=== PATIENT | female | born 1995 | race Caucasian/White ===

== ENCOUNTER 2022-11-18 14:06 | Inpatient (IN) | payer BC ==
[2022-11-19 01:09] VITALS: BMI 35.9
[2022-11-19] MEDS ORDERED: Methylergonovine 0.2 MG/ML VIAL IM PRN (01:55)
[2022-11-19] MEDS ORDERED: Zolpidem Tartrate 5 MG TAB PO PRN (01:55)
[2022-11-19] MEDS ORDERED: Carboprost 250 MCG/ML AMP IM PRN (01:55)
[2022-11-19] MEDS ORDERED: Lidocaine 1% (PF) 30 ML VIAL SC PRN (01:55)
[2022-11-19] MEDS ORDERED: Misoprostol 200 MCG TAB PR PRN (01:55)
[2022-11-19] MEDS ORDERED: Ondansetron PF 4 MG/2 ML Vial IVP PRN ×2 (01:55→20:25)
[2022-11-19] MEDS ORDERED: Acetaminophen 500 MG TAB PO PRN (01:55)
[2022-11-19] MEDS ORDERED: fentaNYL 50 mcg/mL 1 mL Vial SLOW IVP PRN (01:55)
[2022-11-19] MEDS ORDERED: Promethazine HCl 25 MG/ML VIAL IM PRN ×2 (01:55→20:25)
[2022-11-19] MEDS ORDERED: Tranexamic Acid 1,000 MG/10 ML VIAL IVP PRN (01:55)
[2022-11-19] MEDS ORDERED: hydrALAZINE 20 MG/ML VIAL SLOW IVP PRN (01:55)
[2022-11-19] MEDS ORDERED: Penicillin G Potassium 5 MILL.UNITS in Sodium Chloride 0.9% 100 ML IVPB SCH (01:55)
[2022-11-19] MEDS ORDERED: Diphenoxylate HCl/Atropine Tablet PO PRN ×2 (01:55)
[2022-11-19] MEDS ORDERED: HYDROcodone/Acetaminophen 5/325 mg Tablet PO PRN ×2 (01:55)
[2022-11-19] MEDS ORDERED: Ibuprofen 800 MG TAB PO PRN (01:55)
[2022-11-19] MEDS ORDERED: NS w/ Oxytocin 30 units 500 ML IV SCH ×2 (01:55)
[2022-11-19] MEDS: Misoprostol 100 MCG TAB VAG SCH ×3 (03:22→09:56)
[2022-11-19] MEDS: Lactated Ringer's 1,000 ML IV SCH ×3 (03:22→22:12)
[2022-11-19 04:01] LABS: Syphilis Antibody Nonreactive (Nonreactive); Syphilis Antibody Index 0.05 S/CO (<1.00 Non-Reactive)
[2022-11-19 04:02] LABS: HBSAg Index 0.18 S/CO (0-0.99); Hep B Surf Ag - L&D Non-Reactive S/CO (NonReactive)
[2022-11-19 04:20] LABS: Hematocrit 33.1 % (34.9-44.5); Hemoglobin 10.7 g/dL (12.0-15.5); Mean Corpuscular HGB CONC 32.3 g/dL (32.0-36.0); Mean Corpuscular Hemoglobin 31.8 pg (27.0-33.0); Mean Corpuscular Volume 98.5 fl (81.6-98.3); Mean Platelet Volume 10.8 fl (7.4-10.4); Platelet Count 186 10x3/uL (150-450); RBC Distribution Width 14.6 % (11.5-14.5); Red Blood Cell (RBC) Count 3.36 10x6/uL (3.90-5.03); White Blood Cell (WBC) Count 9.4 10x3/uL (3.5-10.5)
[2022-11-19] MEDS: Penicillin G 2.5 MILL.units 2.5 MILL.UNITS in Premix Bag 1 BAG IVPB SCH ×3 (13:46→21:06)
[2022-11-19] MEDS ORDERED: fentaNYL/Ropivacaine Epidural 100 ML ONE (19:35)
[2022-11-19] MEDS ORDERED: Moisturizing Cream (Eucerin) 113 GM JAR TOP PRN (20:25)
[2022-11-19] MEDS ORDERED: Lactated Ringer's 500 ML IV PRN (20:25)
[2022-11-19] MEDS ORDERED: diphenhydrAMINE 50 MG/ML VIAL IVP PRN (20:25)
[2022-11-19] MEDS ORDERED: Naloxone HCl 0.4 mg/ml Vial IVP PRN ×2 (20:25)
[2022-11-19] MEDS ORDERED: ePHEDrine Sulfate 50 MG/10 ML VIAL SLOW IVP PRN (20:25)
[2022-11-19] MEDS ORDERED: Acetaminophen 325 MG TAB PO PRN (20:25)
[2022-11-19] MEDS ORDERED: Communication Order-Pharmacy FS SCH (20:30)
[2022-11-19] MEDS ORDERED: fentaNYL 2 mcg/Ropivacaine 0.2% Epidural 100 ML CADD EPIDURAL SCH (20:30)
[2022-11-20] MEDS: Penicillin G 2.5 MILL.units 2.5 MILL.UNITS in Premix Bag 1 BAG IVPB SCH ×2 (01:43→19:33)
[2022-11-20] MEDS ORDERED: Azithromycin 500 MG VIAL ONE (06:45)
[2022-11-20] MEDS ORDERED: CEFAZOLIN 2 GM VIAL ONE (06:45)
[2022-11-20] MEDS ORDERED: Famotidine/PF 20 mg/2ml Vial ONE (06:50)
[2022-11-20] MEDS ORDERED: Ondansetron PF 4 MG/2 ML Vial ONE ×2 (06:57→07:29)
[2022-11-20] MEDS ORDERED: ePHEDrine Sulfate 50 MG/10 ML VIAL ONE (06:57)
[2022-11-20] MEDS ORDERED: Oxytocin 10 UNITS/ML VIAL ONE (06:57)
[2022-11-20] MEDS ORDERED: PHENYLEPHRINE-NS 100 MCG/ML 10 ML SYRINGE ONE (06:57)
[2022-11-20] MEDS ORDERED: Morphine PF 10 MG/10 ML VIAL ONE (06:57)
[2022-11-20] MEDS ORDERED: Ketorolac Tromethamine 30 MG/ML VIAL ONE (06:58)
[2022-11-20] MEDS ORDERED: Chloroprocaine 3% PF 20 ML VIAL ONE (06:58)
[2022-11-20] MEDS ORDERED: Bicitra 30 ML UDCUP PO PRN (07:01)
[2022-11-20] MEDS ORDERED: Famotidine/PF 20 mg/2ml Vial SLOW IVP PRN (07:01)
[2022-11-20] MEDS ORDERED: Azithromycin 500 MG in Sodium Chloride 0.9% 250 ML 250 ML IVPB STA (07:02)
[2022-11-20] MEDS ORDERED: CEFAZOLIN 2 GM in Sodium Chloride 0.9% 100 ML IVPB SCH (07:15)
[2022-11-20] MEDS ORDERED: Naloxone HCl 0.4 mg/ml Vial IVP PRN ×2 (09:15)
[2022-11-20] MEDS ORDERED: Ondansetron PF 4 MG/2 ML Vial IVP PRN (09:15)
[2022-11-20] MEDS ORDERED: Communication Order-Pharmacy FS SCH (09:15)
[2022-11-20] MEDS ORDERED: Promethazine HCl 25 MG/ML VIAL IM PRN (09:15)
[2022-11-20] MEDS ORDERED: Moisturizing Cream (Eucerin) 113 GM JAR TOP PRN (09:15)
[2022-11-20] MEDS ORDERED: Ketorolac Tromethamine 30 MG/ML VIAL IVP SCH (09:15)
[2022-11-20] MEDS ORDERED: Ondansetron HCl/PF 4 MG/2 ML Vial IVP PRN (09:15)
[2022-11-20] MEDS ORDERED: Meperidine HCl/PF 25 MG/ML VIAL SLOW IVP PRN (09:15)
[2022-11-20] MEDS ORDERED: Naloxone HCl 0.4 mg/ml Vial IV PRN (09:15)
[2022-11-20] MEDS ORDERED: diphenhydrAMINE 50 MG/ML VIAL IVP PRN (09:15)
[2022-11-20] MEDS ORDERED: Promethazine HCl 25 MG SUPP PR PRN (09:15)
[2022-11-20] MEDS ORDERED: Fentanyl 50 MCG/1 ML VIAL SLOW IVP PRN (09:15)
[2022-11-20] MEDS ORDERED: Methylergonovine 0.2 MG/ML VIAL IM PRN (10:55)
[2022-11-20] MEDS ORDERED: Bisacodyl 10 MG SUPP PR PRN (10:55)
[2022-11-20] MEDS ORDERED: Lanolin Ointment 7 GM TUBE TOP PRN (10:55)
[2022-11-20] MEDS ORDERED: Boostrix 0.5 ML (Tdap) VIAL (>/=7 yrs of age) IM ONE (10:55)
[2022-11-20] MEDS ORDERED: Misoprostol 200 MCG TAB PR PRN (10:55)
[2022-11-20] MEDS ORDERED: diphenhydrAMINE 25 MG CAP PO PRN (10:55)
[2022-11-20] MEDS ORDERED: hydrALAZINE 20 MG/ML VIAL SLOW IVP PRN (10:55)
[2022-11-20] MEDS ORDERED: Ferrous Sulfate 325 MG TAB PO SCH (11:00)
[2022-11-20] MEDS ORDERED: Docusate 100 MG CAP PO SCH (11:00)
[2022-11-20] MEDS ORDERED: Prenatal Vitamin 1 TAB PO SCH (11:15)
[2022-11-20] MEDS ORDERED: Bupivacaine 0.25% HCL 30 ML VIAL ONE (13:00)
[2022-11-20] MEDS ORDERED: Bupivacaine PF 0.5% 30 ML VIAL ONE (13:00)
[2022-11-20] MEDS: Ketorolac Tromethamine 30 MG/ML VIAL IVP PRN ×2 (17:43→23:55)
[2022-11-20] MEDS: Misoprostol 100 MCG TAB VAG SCH ×2 (19:32→19:33)
[2022-11-20] MEDS: Lactated Ringer's 1,000 ML IV SCH (19:34)
[2022-11-20] MEDS: Ferrous Sulfate 325 MG TAB PO SCH (20:37)
[2022-11-20] MEDS: Simethicone Chewable 80 MG TAB PO PRN (20:39)
[2022-11-20] MEDS: Docusate 100 MG CAP PO SCH (20:39)
[2022-11-20] MEDS ORDERED: HYDROcodone/Acetaminophen 5/325 mg Tablet PO PRN ×2 (21:30)
[2022-11-21] MEDS: Ketorolac Tromethamine 30 MG/ML VIAL IVP PRN (05:31)
[2022-11-21 06:03] LABS: Hematocrit 22.1 % (34.9-44.5); Hemoglobin 7.1 g/dL (12.0-15.5); Mean Corpuscular HGB CONC 32.1 g/dL (32.0-36.0); Mean Corpuscular Hemoglobin 32.1 pg (27.0-33.0); Mean Platelet Volume 11.3 fl (7.4-10.4); Platelet Count 187 10x3/uL (150-450); RBC Distribution Width 14.4 % (11.5-14.5); Red Blood Cell (RBC) Count 2.21 10x6/uL (3.90-5.03); White Blood Cell (WBC) Count 10.8 10x3/uL (3.5-10.5)
[2022-11-21] MEDS: Docusate 100 MG CAP PO SCH ×2 (08:22→21:32)
[2022-11-21] MEDS: Ferrous Sulfate 325 MG TAB PO SCH ×2 (08:22→21:31)
[2022-11-21] MEDS: Prenatal Vitamin 1 TAB PO SCH (08:22)
[2022-11-21] MEDS ORDERED: traMADol HCl 50 MG TAB PO PRN (08:25)
[2022-11-21] MEDS: traMADol HCl 50 MG TAB PO PRN ×2 (10:10→14:33)
[2022-11-21] MEDS: Ibuprofen 800 MG TAB PO SCH ×2 (14:33→21:32)
[2022-11-22] MEDS: Ibuprofen 800 MG TAB PO SCH ×3 (05:01→22:13)
[2022-11-22] MEDS: Prenatal Vitamin 1 TAB PO SCH (08:11)
[2022-11-22] MEDS: Docusate 100 MG CAP PO SCH ×2 (08:11→22:13)
[2022-11-22] MEDS: Ferrous Sulfate 325 MG TAB PO SCH ×2 (08:11→22:13)
[2022-11-22] MEDS: Simethicone Chewable 80 MG TAB PO PRN (13:43)
[2022-11-22] MEDS: traMADol HCl 50 MG TAB PO PRN (14:40)
[2022-11-23 04:27] LABS: Hematocrit 20.9 % (34.9-44.5); Hemoglobin 6.6 g/dL (12.0-15.5)
[2022-11-23] MEDS: Ibuprofen 800 MG TAB PO SCH ×2 (05:51→14:00)
[2022-11-23] MEDS: Ferrous Sulfate 325 MG TAB PO SCH (08:56)
[2022-11-23] MEDS: Prenatal Vitamin 1 TAB PO SCH (08:56)
[2022-11-23] MEDS: Docusate 100 MG CAP PO SCH (08:56)
[2022-11-23 15:05] VITALS: BP 114/70; TEMP 98.5
[2022-11-23 15:44] LABS: Hematocrit 25.3 % (34.9-44.5); Hemoglobin 8.3 g/dL (12.0-15.5)
== END 2022-11-23 17:20 | disposition home or self-care (01) | DRG 787 ==
LOC: CSHLD 11-19 00:08 → CSHPP 11-20 11:00
PROVIDERS: ADMIT Obstetrics & Gynecology; ATTEND Obstetrics & Gynecology
PROC: 10D00Z1 Extraction of Products of Conception, Low, Open Approach (ICD-10-PCS; principal; 2022-11-20)
PROC: 3E0P7VZ Introduction of Hormone into Female Reproductive, Via Natural or Artificial Opening (ICD-10-PCS; 2022-11-20)
PROC: 10907ZC Drainage of Amniotic Fluid, Therapeutic from Products of Conception, Via Natural or Artificial Opening (ICD-10-PCS; 2022-11-20)
PROC: 30233N1 Transfusion of Nonautologous Red Blood Cells into Peripheral Vein, Percutaneous Approach (ICD-10-PCS; 2022-11-23)
DX: O24.420 Gestational diabetes mellitus in childbirth, diet controlled (principal); D62 Acute posthemorrhagic anemia; O33.9 Maternal care for disproportion, unspecified; O62.1 Secondary uterine inertia; O90.81 Anemia of the puerperium; Z37.0 Single live birth; Z3A.39 39 weeks gestation of pregnancy
CPT/HCPCS: 36415; 36416; 36430; 51702; 85014; 85018; 85027; 86780; 86850; 86900; 86901; 87340; J0456; J1885; J2274; J2401; J2405; J2540; J2590; J3490; J7120; P9016; S0020; S0028

== ENCOUNTER 2025-03-13 14:40 | Inpatient (IN) | payer BC, OTHER ==
[2025-03-13] MEDS ORDERED: Famotidine/PF 20 mg/2ml Vial SLOW IVP PRN (14:58)
[2025-03-13] MEDS ORDERED: Tranexamic Acid 1,000 MG/10 ML VIAL IVP PRN (14:58)
[2025-03-13] MEDS ORDERED: hydrALAZINE 20 MG/ML VIAL SLOW IVP PRN ×2 (14:58→19:35)
[2025-03-13] MEDS ORDERED: Methylergonovine 0.2 MG/ML VIAL IM PRN ×2 (14:58→19:35)
[2025-03-13] MEDS ORDERED: Carboprost 250 MCG/ML AMP IM PRN (14:58)
[2025-03-13] MEDS ORDERED: Ondansetron PF 4 MG/2 ML Vial IVP PRN ×4 (14:58→19:35)
[2025-03-13] MEDS ORDERED: Bicitra 30 ML UDCUP PO PRN (14:58)
[2025-03-13] MEDS ORDERED: Diphenoxylate HCl/Atropine Tablet PO PRN ×2 (14:58)
[2025-03-13] MEDS ORDERED: Oxytocin 30 units/NS 500 ML 500 ML IV SCH ×2 (15:00→19:35)
[2025-03-13] MEDS ORDERED: Azithromycin 500 MG in Sodium Chloride 0.9% 250 ML 250 ML IVPB SCH (15:00)
[2025-03-13 15:14] VITALS: BMI 35.9
[2025-03-13 15:43] LABS: Hematocrit 37.5 % (34.9-44.5); Hemoglobin 12.7 g/dL (12.0-15.5); Mean Corpuscular Hemoglobin 31.8 pg (27.0-33.0); Mean Corpuscular Volume 94.0 fL (81.6-98.3); Platelet Count 195 10x3/uL (150-450); Red Blood Cell (RBC) Count 3.99 10x6/uL (3.90-5.03); White Blood Cell (WBC) Count 10.86 10x3/uL (3.5-10.5)
[2025-03-13] MEDS ORDERED: diphenhydrAMINE 50 MG/ML VIAL IVP PRN (16:07)
[2025-03-13] MEDS ORDERED: Meperidine HCl/PF 25 MG (1 mL) VIAL SLOW IVP PRN (16:07)
[2025-03-13] MEDS ORDERED: HYDROmorphone 0.5 MG/0.5 ML SYRINGE SLOW IVP PRN (16:07)
[2025-03-13] MEDS ORDERED: Ketorolac Tromethamine 30 MG (1 mL) VIAL IVP SCH (16:15)
[2025-03-13] MEDS ORDERED: Communication Order-Pharmacy FS SCH (16:15)
[2025-03-13 16:27] LABS: Hep B Surf Ag - L&D Non-Reactive S/CO (NonReactive)
[2025-03-13 16:28] LABS: Syphilis Antibody Index 0.04 S/CO (<1.00 Non-Reactive)
[2025-03-13] MEDS: PHENYLEPHRINE-NS 100 MCG/ML 10 ML SYRINGE ONE (19:34)
[2025-03-13] MEDS: Oxytocin 10 UNITS/ML VIAL ONE ×2 (19:34)
[2025-03-13] MEDS ORDERED: diphenhydrAMINE 25 MG CAP PO PRN (19:35)
[2025-03-13] MEDS ORDERED: Bisacodyl 10 MG SUPP PR PRN (19:35)
[2025-03-13] MEDS: Simethicone Chewable 80 MG TAB PO SCH (19:56)
[2025-03-13] MEDS: Ketorolac Tromethamine 30 MG (1 mL) VIAL IVP PRN (19:57)
[2025-03-14 03:46] LABS: Hematocrit 32.5 % (34.9-44.5); Hemoglobin 10.8 g/dL (12.0-15.5); Mean Corpuscular Hemoglobin 32.5 pg (27.0-33.0); Mean Corpuscular Volume 97.9 fL (81.6-98.3); Platelet Count 134 10x3/uL (150-450); Red Blood Cell (RBC) Count 3.32 10x6/uL (3.90-5.03); White Blood Cell (WBC) Count 10.33 10x3/uL (3.5-10.5)
[2025-03-14] MEDS: Senokot S 8.6-50 MG TAB PO SCH (08:40)
[2025-03-14] MEDS: Acetaminophen 325 MG TAB PO SCH (08:40)
[2025-03-14] MEDS: Ibuprofen 800 MG TAB PO SCH (16:52)
[2025-03-14] MEDS ORDERED: HYDROcodone/Acetaminophen 5/325 mg Tablet PO PRN ×2 (21:00)
[2025-03-15 07:47] VITALS: BP 118/79; TEMP 98
== END 2025-03-15 11:20 | disposition home or self-care (01) | DRG 788 ==
LOC: CSHLD 14:40 → CSHPP 20:30
PROVIDERS: ADMIT Obstetrics & Gynecology; ATTEND Obstetrics & Gynecology
PROC: 10D00Z1 Extraction of Products of Conception, Low, Open Approach (ICD-10-PCS; principal; 2025-03-13)
DX: O99.824 Streptococcus B carrier state complicating childbirth (principal); Z3A.39 39 weeks gestation of pregnancy; Z37.0 Single live birth; O99.214 Obesity complicating childbirth; E66.9 Obesity, unspecified; O34.211 Maternal care for low transverse scar from previous cesarean delivery; O24.420 Gestational diabetes mellitus in childbirth, diet controlled
CPT/HCPCS: 36415; 36416; 51702; 85027; 86780; 86850; 86900; 86901; 87340; J1885; J2274; J2590